=== PATIENT | female | born 1935 | race Caucasian/White ===

== ENCOUNTER 2023-03-05 12:17 | Outpatient (CLI) | payer OTHER, SELFPAY ==
--- NOTE | 2023-03-05 12:30 | ECG_ITS ---
Measurements Intervals [place] Rate: 67 P: -57 NM: 178 QRS: 12 QRSD: 89 T: 36 QT: 376 QTc: 397 Interpretive Statements SINUS RHYTHM NORMAL ELECTROCARDIOGRAM NO PREVIOUS ECG AVAILABLE FOR COMPARISON Electronically Signed On 03-05-2023 13:41:22 EKG TECH by Khoi Sunshine M.D.
== END 2023-03-05 12:18 | disposition home or self-care (01) ==
LOC: ANHSURGERY 12:26
PROVIDERS: PCP Family Medicine; Visit Provider Urology
DX: E78.00 Pure hypercholesterolemia, unspecified (principal)
CPT/HCPCS: 93005

== ENCOUNTER 2023-03-11 02:12 | Day surgery (SDC) | payer OTHER, SELFPAY ==
[2023-03-04 11:11] VITALS: BMI 26.5
--- NOTE | 2023-03-04 11:19 | PC.NURSE ---
PRE-OP INSTRUCTIONS, PLEASE READ CAREFULLY Report to the Outpatient Waiting Room, entrance under the green pavilion located off [facility], at time _0730_ on date _03/11/23_. Planned Procedure Time: _0930_. Time changes happen often and if your time is changed the preop area will call you the afternoon before. - You and your visitor will be asked to self-screen and do not enter if you have any COVID symptoms. - A mask is optional within the hospital at this time. Patients may have clear liquids (water, carbonated beverages, clear teas, apple juice) until 3 hours prior to surgery (0630 AM) with a maximum of 20 ounces. - No food from midnight until time of surgery Take the following medications with a SIP of water the morning of surgery: _NONE_ DO NOT STOP ANY OF YOUR OTHER PRESCRIPTION MEDICATIONS PRIOR TO SURGERY ?EXCEPT THE FOLLOWING Medications to discontinue per physician __NONE___, Date to take last dose Please no make-up, nail vietnamese, hairspray, perfume, deodorant, or body powder the day of surgery. No jewelry (including any body piercings) or valuables the day of surgery, leave them at home. Please take a shower or bath the night before, or the morning of, surgery with an antibacterial soap. Wear comfortable, loose fitting clothing. - Jewelry must be removed prior to entering the operating room. Rings and piercings that are not removed may be cut off. - The hospital will not accept responsibility for valuables. - Please leave all valuables, including medications, at home the day of surgery. If you are going home after surgery, a licensed driver engineer must drive you home. - NO public transportation without another adult if you receive anesthesia. - We recommend that an adult stay with you for 24 hours following discharge. - We also recommend that you do not drive, make important decision, drink alcoholic beverages, or take any drugs that were not prescribed by your health care provider for at least 24 hours after your discharge time. Follow any additional instructions given to you from your surgeon. If you or anyone in your household have experienced Covid symptoms in the past week, please notify your surgeon or the nurse liaison at the phone number below for possible testing. Telephone instructions given to _PATIENT_and asked if any additional questions and then verbalized understanding. Patient advised to call surgeon office or pre surgery nurse liaison [phone] if any additional questions.
[2023-03-11] VITALS (11 sets, daily range): BP systolic 131–174; BP diastolic 49–81; PULSE 56–70; RESP 12–20; TEMP 36.2–36.6; O2SAT 98–100; BMI 26.2
--- NOTE | ~2023-03-11 | XR_ITS ---
EXAMINATION: XR retrograde pyelogram BI DATE: 03/11/2023 11:32 HEAVY TRUCK TECHNICIAN INDICATION: Evaluate for urinary abnormality TECHNIQUE: 86 fluoroscopic images from retrograde pyelogram are submitted for review. 20 seconds of f luoroscopy.] FINDINGS: There is normal filling of both ureters which are normal in course and caliber. There is fi lling defects bilaterally which appear mobile, likely gas. Normal bilateral renal collecting systems. IMPRESSION: 1. Unremarkable bilateral retrograde pyelogram. Correlate with real time procedural findings for det ails. Reviewed, dictated and finalized at location L. Y TRUCK TECHNICIAN IMPRESSION: 1. Unremarkable bilateral retrograde pyelogram. Correlate with real time proce dural findings for details.
--- NOTE | 2023-03-11 06:55 | WPDHPUPDATE1 ---
History and Physical Update Update Date/Time: 03/11/23 06:55 History and Physical has been reviewed, including an updated exam of the patient. There are NO changes in the patient's condition. Risks, benefits, and alternatives have been discussed and questions answered. Patient agrees to proceed with procedure.
--- NOTE | 2023-03-11 08:09 | P.PNAN_ITS ---
Anes - Initial Pre Proc Eval Procedure: Operation Date: 03/11/23 09:30 Proposed Procedures p Trans Urethral Resection Bladder Tumor, Gemcitabine Instillation, - Ray Hernandes MD s Cystoscopy, with Bilateral Retrograde Pyelography - Ray Hernandes MD Date/Time: 03/11/23 08:09 Surgeon: Ray Hernandes MD Pre Op Diagnosis: gross hematuria R33.0 Patient Data Age: 88 Gender: F Height: 1.57 m Weight: 65.9 kg Allergies Allergy/AdvReac Type Severity Reaction Status Date / Time No Known Allergies Allergy Verified 03/11/23 07:40 Home Medications Medication Instructions Recorded Confirmed Type simvastatin 20 mg tablet 20 mg HS 03/04/23 03/11/23 History Patient hx anesthesia problems: none Family hx anesthesia problems: none Results Review: All pre-operative results and documents have been reviewed as part of the pre- operative evaluation. REPLACED BY [facility] Past Medical History Medical History (Updated 03/11/23 @ 08:10 by Apolinar Price MD) Bladder cancer Hyperlipidemia Social History Social History Smoking status: Never smoker Second hand tobacco smoke exposure: No Alcohol intake: never Substance use: never Substance use type: does not use Living arrangements: alone Spiritual care concerns: No Anes - Eval Final PreProcedure Day of Procedure 03/11/23 08:09 Patient weight: normal Heart: regular rate and rhythm Lungs: clear to auscultation Airway: Mallampati scale class 1 Neurological: alert and oriented Last oral intake: >/= 8 hours ASA classification: III Emergent: no Anesthetic plan: proceed Anesthesia type and monitoring: general LMA and standard monitoring Results Review: All pre-operative results and documents have been reviewed as part of the pre- operative evaluation. Informed Consent: The patient's anesthetic plan and its attendant risks and benefits were discussed with the patient/family/POA. Questions were solicited and answers provided to the satisfaction of the patient/family/POA.
[2023-03-11] MEDS: LACTATED RINGERS 1,000 ML 30 ML IV CONT (08:43)
[2023-03-11] MEDS: ceFAZolin 2 GM/D5W 50 ML 2 GM/50 ML BAG IVPB (09:06)
[2023-03-11] MEDS: LIDOCAINE HCL 2% GEL UROJET 10 ML PKG MUCOUS MEM (09:30)
[2023-03-11] MEDS: SODIUM CHLORIDE 0.9% IV 23.7 ML, GEMCITABINE HCL 1,000 MG BLADDER ×2 (09:47→09:49)
--- NOTE | 2023-03-11 09:52 | W.PM.PROC2 ---
Procedure Note - Detailed Date of Procedure 03/11/23 Pre-op Diagnosis Bladder tumor Post-op Diagnosis Same Procedure Performed Cystoscopy, bilateral retrograde pyelography, TURBT (small, 2 cm) Surgeon Ray Hernandes MD Anesthesia General Description of Procedure Patient is brought to the operative suite she has prepped draped in routine sterile fashion while in dorsal lithotomy position after the uneventful induction of a general LMA anesthetic. Cystoscopy undertaken with a 21F rigid cystoscope. Bladder neck and urethra endoscopically normal. Careful inspection her bladder reveals a papillary neoplasm overlying the right posterior lateral bladder wall, lateral to the right ureteral orifice. The remainder of the mucosa is without hyperemia or other suggested a neoplasm. 8F bulb-tipped catheter was used to obtain bilateral retrograde pyelograms which showed no evidence of upper urinary tract obstruction filling defect or other identifiable pathology. Using a resectoscope I resected the neoplasm with an attempt made to include detrusor muscle for pathological evaluation of invasion. The base and periphery was cauterized. System with care taken to avoid injury to the right ureteral orifice. Resectoscope was removed after emptying the patient's bladder. The patient was taken recovery room good condition Drains No Packing No Pathology Yes Complications No immediate complications Condition Stable
== END 2023-03-11 12:05 | disposition home or self-care (01) ==
PROVIDERS: PCP Family Medicine; Visit Provider Urology
PROC: 0TBB8ZZ Excision of Bladder, Via Natural or Artificial Opening Endoscopic (ICD-10-PCS; CPT 52234; principal; 2023-03-11 09:30)
PROC: (CPT 52352; 2023-03-11 09:30)
DX: C67.8 Malignant neoplasm of overlapping sites of bladder (principal); E78.5 Hyperlipidemia, unspecified
CPT/HCPCS: 52234; 74420; 88305; C1758; C1769; J0690; J2704; J3010; J7120; J9201; Q9966

== ENCOUNTER 2023-07-19 09:09 | Outpatient (CLI) | payer OTHER, SELFPAY ==
--- NOTE | ~2023-07-19 | NM_ITS ---
EXAMINATION: NM tony stress w perfusion DATE: 07/19/2023 11:28 INDICATION: Other forms of dyspnea TECHNIQUE: Rest images were obtained following intravenous administration of 11.1 mCi Tc99m tetrofosm in (Myoview). The patient was infused intravenously with Lexiscan (Regadenoson). Then, 33.3 mCi Tc99m tetrofosmin (Myoview) was administered intravenously, and stress images were obtained. Data was irene nstructed into short axis and horizontal and vertical long axis SPECT images. Gated SPECT images were also obtained. COMPARISON: None. FINDINGS: There is no definite reversible or fixed perfusion abnormality to suggest ischemia or infar ction. There is normal left ventricular chamber size, wall motion and ejection fraction. Left ventr icular ejection fraction measures 69%. IMPRESSION: 1. Normal myocardial perfusion at rest and during stress. 2. Left ventricular ejection fraction measuring 69%. Reviewed, dictated and finalized at location A.
--- NOTE | 2023-07-19 10:07 | EST_ITS ---
Patient Info Name: Lexi Noriega Age: 88 years : 1935 Gender: Female Ht: 62 in Wt: 150 lbs BSA: 1.74 m2 HR: 68 bpm BP: 166 / 83 mmHg Heart Rhythm: Sinus Rhythm Exam Date: 07/19/2023 10:41 AM Exam Location: Echo Lab Patient Status: Outpatient Admit Date: 07/19/2023 Staff Ordering Physician: Behzad Lemus DO Attending Provider: Behzad Lemus DO Exercise Technologist: Tara Enamorado CT Exam Type: CA stress tony w NM Study Info Indications Z01.810 - Encounter for preprocedural cardiovascular examination A regadenoson stress test was performed. Summary 1. 1. Negative lexiscan stress test for ischemic ST changes by ECG criteria. 2. 2. Baseline hypertension. 3. 3. Nuclear scan to follow and will be reported separately. Please correlate with it. 4. 4. Patient informed of the above results. Protocol: Lexiscan Stress ECG Details Stage: REST Duration (min): 2 min : 0 sec HR (bpm): 69 SBP (mmHg): 166 DBP (mmHg): 83 Stage: REST Duration (min): 8 min : 27 sec HR (bpm): 77 SBP (mmHg): 166 DBP (mmHg): 83 Stage: STAGE 1 Duration (min): 0 min : 59 sec HR (bpm): 99 SBP (mmHg): 166 DBP (mmHg): 83 Stage: RECOVERY Duration (min): 1 min : 0 sec HR (bpm): 108 SBP (mmHg): 149 DBP (mmHg): 58 Stage: RECOVERY Duration (min): 2 min : 0 sec HR (bpm): 109 SBP (mmHg): 149 DBP (mmHg): 58 Stage: RECOVERY Duration (min): 3 min : 0 sec HR (bpm): 85 SBP (mmHg): 166 DBP (mmHg): 69 Stage: RECOVERY Duration (min): 3 min : 32 sec HR (bpm): 86 SBP (mmHg): 166 DBP (mmHg): 69 Rest HR: 77 bpm Peak HR: 110 bpm Rest Sys BP: 166 mmHg Peak Sys BP: 166 mmHg Max Pred HR: 131 bpm % Max Pred HR: 84 % Target HR: 111 bpm Max RPP: 18,260 bpm*mmHg Termination Reason: Completed protocol Cardiac Symptoms: Shortness of breath Total Time: 1 min : 0 sec Rest Peñaloza BP: 83 mmHg Peak Peñaloza BP: 69 mmHg Total Dose: 0.4 mg Resting ECG Sinus rhythm. Stress ECG No ST changes. Arrhythmias None. Report Signatures
== END 2023-07-19 09:10 | disposition home or self-care (01) ==
PROVIDERS: PCP Family Medicine; Visit Provider Internal Medicine Cardiovascular Disease
DX: Z01.810 Encounter for preprocedural cardiovascular examination (principal); R06.09 Other forms of dyspnea; I10 Essential (primary) hypertension
CPT/HCPCS: 78452; 93017; A9502; J2785